=== PATIENT | male | born 1950 | race Caucasian/White ===

== ENCOUNTER 2019-10-04 11:47 | Observation (INO) ==
[2019-10-04 13:44] LABS: BASO# 0.02 X1000 (0.0-0.2); BASO% 0.3 % (0.0-0.8); EOS# 0.17 X1000 (0.0-0.7); EOS% 2.5 % (0.0-10.0); HEMATOCRIT 40.1 % (42.0-52.0); LYMPH# 1.26 X1000 (1.2-3.4); LYMPH% 18.4 % (20.5-51.1); MCH 30.7 PG (27-31); MCHC 32.4 g/dL (33-37); MCV 94.6 FL (81-99); MONO# 0.41 X1000 (0.11-0.59); MPV 9.7 FL (7.4-10.4); NEUT# 4.97 X1000 (1.4-6.5); NEUT% 72.8 % (42.2-75.2); PLT 208 X1000 (130-400); RBC 4.24 XMIL (4.7-6.1); RDW 14.7 % (11.5-14.5); WBC 6.83 X1000 (4.8-10.8)
[2019-10-04] MEDS ORDERED: NS 1,000 ML IV ONE (13:55)
[2019-10-04 14:34] LABS: ALB/GLOB RATIO 1.4; CALCIUM 9.2 mg/dL (8.8-10.2); CREATININE 1.5 mg/dL (0.7-1.2); MAGNESIUM 1.7 mg/dL (1.5-2.7); PHOSPHORUS 4.4 mg/dL (2.7-4.5); POTASSIUM 7.4 mmol/L (3.5-5.1); TOTAL BILIRUBIN 0.53 mg/dL (0.20-1.00); TOTAL PROTEIN 6.9 g/dL (6.3-8.3)
[2019-10-04] MEDS ORDERED: CALCIUM CHLORIDE SYRINGE IV ONE (14:35)
[2019-10-04] MEDS ORDERED: HUMULIN R IV ONE ×3 (14:35→20:52)
[2019-10-04] MEDS ORDERED: SODIUM BICARBONATE 8.4% IV ONE ×2 (14:35→17:02)
[2019-10-04] MEDS ORDERED: KAYEXALATE PO ONE (14:35)
[2019-10-04] MEDS ORDERED: ALBUTEROL NEB INH ONE (14:35)
[2019-10-04] MEDS ORDERED: LASIX IV ONE (14:35)
[2019-10-04] MEDS ORDERED: D50W SYRINGE IV ONE ×3 (14:35→20:52)
--- NOTE | 2019-10-04 14:44 | PROVIDER DOCUMENTATION ---
This chart was entered by Layne Farley Scribe, acting as scribe for Manuel Alexandre MD. HPI-General Adult - General Chief Complaint: Abnormal Lab[s] Stated Complaint: ABNORMAL LAB Time Seen by Provider: 10/04/19 13:31 Source: patient Allergies/Adverse Reactions: Patient Allergies Allergy/AdvReac Type Severity Reaction Status Date / Time Penicillins Allergy ITCHING Verified 02/10/19 11:42 Home Medications: Home Medication List Medication Instructions Recorded Confirmed Last Taken Type Biotin 10,000 mcg PO DAILY 08/16/15 02/04/19 02/10/19 08:00 History Carvedilol 25 mg PO BID 08/16/15 02/04/19 02/10/19 08:00 History Cyanocobalamin (Vitamin B-12) 1,000 mcg PO DAILY 08/16/15 02/04/19 02/10/19 08:00 History [Vitamin B-12] Febuxostat [Uloric] 40 mg PO DAILY 08/16/15 02/04/19 02/09/19 History Furosemide 40 mg PO DAILY PRN 08/16/15 02/04/19 02/15/18 04:30 History 1 LISINOpril [Prinivil] 20 mg PO BID 08/16/15 02/04/19 02/10/19 08:00 History Losartan Potassium 100 mg PO DAILY 08/16/15 02/04/19 02/09/19 History Spironolactone 25 mg PO DAILY 08/16/15 02/04/19 02/10/19 08:00 History Celecoxib [Celebrex] 200 mg PO BID 03/13/18 02/10/19 02/09/19 History Indomethacin, Submicronized 20 mg PO BID PRN PRN 03/13/18 02/04/19 02/10/19 08:00 History [Tivorbex] Amlodipine Besylate 5 mg PO DAILY 02/04/19 02/10/19 02/10/19 08:00 History Colchicine [Colcrys] 0.6 mg PO BID PRN PRN 02/04/19 02/04/19 Unknown History Leuprolide Acetate [Eligard] 45 mg SQ DIRECTED 02/04/19 02/10/19 10/23/18 History Oxybutynin [Ditropan] 5 mg PO BID 02/04/19 02/04/19 02/09/19 History Venlafaxine HCl [Venlafaxine HCl 37.5 mg PO DAILY 02/04/19 02/04/19 02/09/19 History ER] Hydrocodone/Acetaminophen [[place] 1 ea PO TID PRN PRN #15 tab 02/10/19 Unknown Rx 10-325 Tablet] Sulfamethoxazole/Trimethoprim 1 ea PO BID #14 tab 02/10/19 Unknown Rx [Bactrim Ds Tablet] - History of Present Illness -Gen Adult Nature of Presenting Problems: Patient is a 69 y/o male presenting to the ED today c/o abnormal labs. Patient reports he was sent by his PCP for hyperkalemia. Patient reports decreased urine output but states he does not drink water much. Patient states he has been having leg pain over the last week and has been taking Aleve for this. Patient also takes Celebrex, Lisinopril, Losartan, spinronolactone, Atorvastatin, and Plavix as prescribed. Patient reports he has a history of MN in 2009 with 3-4 stents. Patient also reports history of HTN and HLP. Patient denies cigarette use. Denies all other signs/symptoms. Location of Pain/Injury: reports: none Associated Symptoms: reports: other (leg pain) Similar Symptoms Previously?: No Recently seen or treated by another doctor?: Yes (sent by PCP after labs) Review of Systems - Adult - REVIEW OF SYSTEMS - ADULT Constitutional: denies: chills, fever Eyes: reports: no symptoms reported Ears, Nose, Mouth & Throat: reports: no symptoms reported Cardiovascular: denies: chest pain Respiratory: denies: cough, shortness of breath Gastrointestinal: denies: abdominal pain, diarrhea, nausea, vomiting Genitourinary: reports: no symptoms reported Musculoskeletal: reports: frequent leg cramps Integumentary: reports: no symptoms reported Neurological: reports: no symptoms reported Psychiatric: reports: no symptoms reported Endocrine: reports: no symptoms reported Hematologic/Lymphatic: reports: no symptoms reported Allergic/Immunologic: reports: no symptoms reported All Other Systems: Reviewed and Negative Past History - Adult - PAST MEDICAL HISTORY-ADULT Review of Records: reports: Old Records Reviewed, Nursing Assessment Review, Medications Reviewed, Social history reviewed & non-contributory. Major Childhood Illnesses: reports: denies history Cardiovascular: reports: HTN, hyperlipidemia, MN (2010) Respiratory: reports: denies history Gastrointestinal: reports: denies history Obstetrical/Gynecological: reports: denies history Genitourinary: reports: denies history Musculoskeletal: reports: denies history Neurological: reports: denies history Endocrine/Immune: reports: denies history Other Conditions: reports: denies history - FAMILY HISTORY Family History: reviewed, not pertinent - SOCIAL HISTORY Smoking: quit greater than 1 year Physical Exam-General - PHYSICAL EXAM-ADULT Initial Vital Signs Reviewed: Yes - CONSTITUTIONAL General Appearance: appears well, alert, no apparent distress - EYES Eyes: PERRL/EOMI, pink conjunctivae - HEAD, EARS, NOSE, MOUTH & THROAT HENMT: normocephalic/atraumatic, moist mucous membranes - NECK Neck: full range of motion, supple - RESPIRATORY Respiratory: lungs clear, normal breath sounds, no respiratory distress, no accessory muscle use - CARDIOVASCULAR Cardiovascular: no edema, bradycardia - GASTROINTESTINAL (ABDOMEN) Abdominal Exam: non tender, soft - LYMPHATIC Lymphatic: no adenopathy - MUSCULOSKELETAL Back Exam: other (small golf-ball sized sebaceous cyst at midthoracic back) Extremity: normal range of motion, normal gait, normal inspection - SKIN Integumentary: normal color, normal turgor, warm/dry - NEUROLOGIC Neurologic: grossly normal, no motor/sensory deficits - PSYCHIATRIC Psych/Mental Status: normal mood/affect, normal thought content, normal thought process Progress - PLAN OF CARE/RESULTS Progress/Plan/Lab Results: Vital Signs - 8 hr 10/04/19 12:17 Temperature 97.9 F Pulse Rate 60 Respiratory Rate 18 Blood Pressure 101/65 O2 Sat by Pulse Oximetry 96 Laboratory Results - last 24 hr 10/04/19 13:20 WBC 6.83 RBC 4.24 L Hgb 13.0 L Hct 40.1 L MCV 94.6 MCH 30.7 MCHC 32.4 L RDW Std Deviation 14.7 H Plt Count 208 MPV 9.7 Immature Gran % (Auto) 0.0 Neut % (Auto) 72.8 Lymph % (Auto) 18.4 L [place] % (Auto) 6.0 Eos % (Auto) 2.5 Baso % (Auto) 0.3 Immature Gran # (Auto) 0.00 Neut # (Auto) 4.97 Lymph # (Auto) 1.26 [place] # (Auto) 0.41 Eos # (Auto) 0.17 Baso # (Auto) 0.02 Orders Category Date Time Status Nursing- Obtain EKG once Care 10/04/19 12:56 Active CHEST-2 VIEWS [RAD] Stat Exams 10/04/19 13:57 Ordered CBC WITH ELECTRONIC DIFF [HEME] Stat Lab 10/04/19 13:20 Completed COMPREHENSIVE METABOLIC PANEL [CHEM] Stat Lab 10/04/19 13:20 Received MAGNESIUM [CHEM] Stat Lab 10/04/19 13:20 Received PHOSPHORUS [CHEM] Stat Lab 10/04/19 13:20 Received URINALYSIS W/POSS RFLX CULT [URINALYSIS] Stat Lab 10/04/19 12:21 Uncollected 0.9% Sodium Chloride Inj [Ns] 1,000 ml Med 10/04/19 13:55 Active IV 999 mls/hr EKG [EKG] Stat Ther 10/04/19 12:56 Ordered Result Diagrams: 10/04/19 13:20 10/04/19 13:20 - REASSESSMENT Reassessment #1 Time Reassessed: 14:41 Status: improving (Given IVF, Kayexalate, Albuterol (hyperkalemia dose), insulin/D50, lasix/NaBicarb, and Calcium Chloride. Will need admission for hydration and alteration of medication regimen.) - EKG 1 Time of EKG reading by physician:: 13:31 EKG Read and Signed by:: Manuel Alexandre EKG Interpretation (*Must complete 3 of following elements*): Normal Rate: 53 Rhythm: Atrial paced rhythm [place]: normal QRS: other (low voltage, early transition) Departure - Departure Date of Disposition Decision: 10/04/19 Time of Disposition Decision: 14:43 DIAGNOSIS: Hyperkalemia, diminished renal excretion, Adverse drug interaction with prescription medication, Myalgia Chronic renal insufficiency Qualifiers: Chronic kidney disease stage: stage 3 (moderate) Qualified Code(s): N18.3 - Chronic kidney disease, stage 3 (moderate) Disposition: ADMITTED INPATIENT 09 Certified Medical Emergency: Emergent Condition: Fair Referrals and Follow-Ups: Sirena Gallegos MD [AFFILIATE PROVIDER] - - Critical Care Note This patient required my direct & personal management of CC.: Yes Total Time (mins): 40 Critical Care Statement: This patient required my direct personal management to treat or rule out processes, the absence of which, could potentiallly result in sudden, clinically significant life or limb threatening deterioration. Attestation - Physician/ BETZAIDA Attestation Patient care was provided by Advanced Practice Provider:: No The physician spent face to face time with patient:: Yes Advanced Practice Provider documentation review:: Supervising physician onsite and consulted in the evaluation and care of this patient. The physician did have a face to face encounter with the patient. This chart was documented by the indicated scribe, (Layne Farley, Jesse) and accurately reflects the services I performed and decisions made by me, Manuel Alexandre MD, as attested by the provider's signature.
--- NOTE | 2019-10-04 15:04 | ED EKG INTERP ---
EKG Interpretation - EKG Time of EKG reading by physician:: 15:03 EKG Read and Signed by:: Manuel Alexandre EKG Interpretation (*Must complete 3 of following elements*): Abnormal Rate: 53 Rhythm: atrial paced rhythm [place]: normal QRS: normal, other (low voltage) RI Interval: normal ST Wave: non-specific ST changes (PEAK T-waves) Attestation - Physician/ BETZAIDA Attestation Patient care was provided by Advanced Practice Provider:: No The physician spent face to face time with patient:: Yes Advanced Practice Provider documentation review:: Supervising physician onsite and consulted in the evaluation and care of this patient. The physician did have a face to face encounter with the patient.
--- NOTE | 2019-10-04 15:06 | Diag Imaging Result Doc PS360 ---
EXAM: CHEST-2 VIEWS INDICATION: short of breath TECHNIQUE: 3 views COMPARISON: None. FINDINGS: The lungs are grossly clear. There is no discrete pleural fluid collection or pneumothorax. The cardiomediastinal silhouette and central vasculature are grossly unremarkable. There is a stable pacemaker/defibrillator. IMPRESSION: No evidence of acute pathology by plain radiograph. Electronically signed by Yonas Marcano 10/04/2019 3:04 PM
[2019-10-04] MEDS ORDERED: TYLENOL PO PRN (15:21)
[2019-10-04] MEDS ORDERED: ZOFRAN IV PRN (15:21)
[2019-10-04] MEDS ORDERED: NS 1,000 ML IV SCH (15:30)
[2019-10-04] MEDS ORDERED: CALCIUM CHLORIDE 1 GM in NS 100 ML IV ONE (15:30)
[2019-10-04 16:35] LABS: URINE SOURCE CLEAN CATCH
[2019-10-04 16:39] LABS: BILIRUBIN URINE NEGATIVE (NEGATIVE); BLOOD URINE NEGATIVE (NEGATIVE); COLOR YELLOW; GLUCOSE URINE NEGATIVE (NEGATIVE); KETONE URINE NEGATIVE (NEGATIVE); LEUKOCYTES URINE MODERATE (NEGATIVE); NITRITE URINE NEGATIVE (NEGATIVE); PH URINE 5.5; PROTEIN URINE TRACE mg/dL (NEGATIVE); SP GRAVITY URINE 1.022; TURBIDITY URINE CLEAR (CLEAR); UROBILINOGEN URINE 2 mg/dL (NORMAL)
[2019-10-04 16:40] LABS: UR EPITHELIAL CELLS <10 /HPF (<10); URINE BACTERIA NEGATIVE /HPF; URINE RBC <10 /HPF (<10); URINE WBC <10 /HPF (<10)
[2019-10-04 17:04] LABS: UR CREAT RANDOM 314.4 mg/dL (14-26)
[2019-10-04] MEDS ORDERED: VELTASSA PO ONE (17:22)
--- NOTE | 2019-10-04 17:48 | Diag Imaging Result Doc PS360 ---
EXAM: US RENAL 2 (RETROPER) COMPLETE INDICATION: charla; hyperkalemia TECHNIQUE: COMPARISON: None. FINDINGS: There are numerous simple appearing bilateral renal cysts. The largest on the right is at the upper pole measuring up to 8.5 cm. The largest on the left is also at the upper pole measuring up to 4.3 cm. No solid renal masses or hydronephrosis is appreciated. There are also incidental prominent hepatic cysts. The right kidney measures 13.8 cm and the left kidney measures 10.9 cm in the greatest longitudinal axes. Both renal cortices measure up to 1 cm in thickness. The urinary bladder is grossly unremarkable. IMPRESSION: 1.Multiple fairly prominent renal cysts bilaterally. 2.Incidental hepatic cysts. Electronically signed by Yonas Marcano 10/04/2019 5:46 PM
[2019-10-04] MEDS: NS 1,000 ML IV SCH (17:55)
--- NOTE | 2019-10-04 17:58 | EKG Report ---
Test Performed on : 10/04/2019 1:20:30 PM Test Reason : hyperkalemia Blood Pressure : / mmHG Vent. Rate : 053 BPM Atrial Rate : 053 BPM P-R Int : 192 ms QRS Dur : 098 ms QT Int : 394 ms P-R-T Axes : -17 010 075 degrees QTc Int : 369 ms Atrial-paced rhythm Abnormal ECG When compared with ECG of 16-AUG-2015 11:05, Electronic atrial pacemaker has replaced Sinus rhythm. Nonspecific T wave abnormality no longer evident in Inferior leads Unconfirmed Result
--- NOTE | 2019-10-04 18:51 | HISTORY AND PHYSICAL ---
ADDENDUM: HISTORY: I have seen and examined Mr. Guerra today. was at the bedside at the time of the encounter. Initially when I went to see Mr. Guerra, he was not in his ER room. He had been sent to ultrasound, so I went to see him at the ultrasound department. Mr. Guerra tells me that he came in mainly because of generalized weakness, pain and cramps in his legs, and generalized weakness. He also said he did some lab work and he was told that his numbers were abnormal, so he needed to come to the emergency room. Upon presenting to the emergency room, he was found to have a potassium level of 7.4 and a creatinine of 1.5. PHYSICAL EXAMINATION: GENERAL: Remarkable for mildly obese with a BMI of 33.8. HEENT: Mucous membrane is dry, but he is anicteric and acyanotic. NECK: Supple. CHEST: Clear. CARDIOVASCULAR: Regular rate and rhythm. ABDOMEN: Soft. EXTREMITIES: No pedal edema. CENTRAL NERVOUS SYSTEM: The patient was awake, alert, and oriented. VITAL SIGNS: Blood pressure of 101/65, pulse of 60, respirations 18, temperature 97.7 degrees. HOME MEDICATIONS: Have all been reviewed. He is supposed to be on spironolactone 25 mg daily, losartan 100 mg p.o. daily, lisinopril 20 mg b.i.d., furosemide 40 mg p.o. daily, and carvedilol 25 b.i.d. DIAGNOSTIC STUDIES: His x-ray this morning showed no acute pathology. There is a stable pacemaker/defibrillator. I saw an EKG that shows atrial paced rhythm with nonspecific peaked T-waves. ASSESSMENT: 1. Generalized weakness and deconditioning most likely due to dehydration and electrolyte abnormality in this case, severe hyperkalemia, and non gap metabolic acidosis. 2. Severe hyperkalemia with mild EKG changes, presumably medication induced. 3. Non gap metabolic acidosis. 4. Clinical volume depletion with acute kidney injury. 5. History of systolic dysfunction on multiple medications which I think is the cause of his current clinical presentation. 6. Hypertension. 7. History of prostate cancer. The patient is on leuprolide. In general, I think Mr. Guerra is clinically stable. However, he remains quite weak. His potassium continues to be remarkably elevated. We are going to treat with insulin and D50 again. I have started him on Lokelma and we will continue to monitor his potassium every 6 hourly and make changes accordingly. We will also continue with IV fluids for adequate fluid resuscitation. Please refer to the details of the history and physical by the COAL PICKER. I have reviewed it and discussed the plan with her. I have also discussed my findings and plan with both the and the patient. cc: Ranjit Yepez MD
[2019-10-04] MEDS ORDERED: HUMULIN R SUBQ ONE (18:53)
--- NOTE | 2019-10-04 19:06 | HISTORY AND PHYSICAL ---
PRIMARY CARE PROVIDER: Franco Crenshaw, Nurse Practitioner. CHIEF COMPLAINT: Abnormal electrolytes. HISTORY OF PRESENT ILLNESS: Mr. Pollo Guerra is a 69-year-old male with a medical history of hypertension, osteoarthritis, hyperlipidemia, coronary disease with FL, systolic congestive heart failure, and gout. He has got a defibrillator. He has had cardiac stents. He is currently here with reports of having a high potassium level. His had gone in for a routine checkup with his primary care provider with routine labs, was found to have an elevated potassium level over 7, and was called and told to come into the emergency department. Here his initial potassium level was 7.4. He received dextrose, bicarb, insulin, Veltassa, albuterol Lasix, and Kayexalate. Currently no electrical rhythm issues at this time, but he had a repeat on his potassium level and it just barely went down. So we will monitor him in PVC. Most likely we will need to hold several of his home medications as they can increase risk for acute kidney injury which in turn can increase the risk for retaining potassium. Mr. Guerra does admit to taking Aleve on a pretty regular basis to help with his pain. He states that helps with his pain more than anything. He also stated that he has been having dizziness upon standing for the last 2 weeks along with some chills. He feels like his lower extremities have been a little more weak. PAST MEDICAL HISTORY: 1. Hypertension. 2. Osteoarthritis. 3. Hyperlipidemia. 4. Coronary artery disease with history of FL. 5. Systolic congestive heart failure. 6. Gout. 7. Prostate cancer. SURGICAL HISTORY: 1. Cardiac stents. 2. Permanent pacemaker defibrillator. 3. Prostate resection. 4. Left knee scope. 5. Bladder sling. 6. Tonsillectomy. SOCIAL HISTORY: Retired from [employer]. He was a heavy smoker of 3 or 4 packs per day for 15 years, but stopped in 1990. Used a significant amount of alcohol, but stopped that in 1980. No illicit drug use. Lives with his . FAMILY HISTORY: Mother at 71, had Alzheimer's dementia. Father at 69 secondary to an acute myocardial infarction. ALLERGIES: Penicillin. HOME MEDICATIONS: Biotin 10,000 mcg p.o. daily, Celebrex 200 mg p.o. twice daily, colchicine 0.6 mg p.o. twice daily p.r.n., Ditropan 5 mg p.o. twice daily, Eligard 45 mg subcutaneous as directed, Lasix 40 mg p.o. daily p.r.n., Losartan potassium p.o. daily, lisinopril 20 mg p.o. twice daily, spironolactone 25 mg p.o. daily, venlafaxine 37.5 mg p.o. daily, and vitamin B12 at 1000 mcg p.o. daily. REVIEW OF SYSTEMS: Mr. Pollo Guerra's 14-point review of systems were completed and all were negative except for those mentioned above in HPI. PHYSICAL EXAMINATION: VITAL SIGNS: Temperature 97.9 degrees, heart rate 60, respiratory rate 18, blood pressure 101/65, and O2 saturation 96% on room air. GENERAL: Mr. Pollo Guerra is a 69-year-old male. He is in no acute distress. He is able to answer questions appropriately. HEENT: Atraumatic, normocephalic. Pupils equal, round, and reactive to light. Extraocular movements intact. Mucous membranes are dry. NECK: Trachea midline. CARDIOVASCULAR: S1, S2. Regular rate and rhythm. No rubs, gallops, or murmurs. No lower extremity edema. Plus 2 dorsalis and radial pulses. Negative for JVD or carotid bruits. PULMONARY: Clear to auscultation. Bilateral breath sounds. No accessory muscle use or work of breathing noted. GASTROINTESTINAL: Soft, nontender, nondistended. Positive bowel sounds x4. EXTREMITIES: Moves all extremities equally. Full range of motion. Decreased strength in the lower extremities, but just slightly. NEUROLOGIC: A and O x3. Follows commands. Sensory is intact. SKIN: Warm, dry, intact. LABORATORY DATA: White blood cells 6000, hemoglobin 13, hematocrit 40, platelet count 208,000. Sodium 140, potassium initially was 7.4 and is down to 7.3, BUN 45, creatinine is 1.5, glucose 108, calcium 9.2, phosphorus 4.4, magnesium 1.7, bilirubin 0.53, AST 29, ALT 29, CK 404, albumin 4.0. Urinalysis: Trace protein, 2 urobilinogen, and moderate leukocytes. Random urine creatinine is 314, random urine sodium is 73, and random urine urea is 816. IMAGING: Chest x-ray: No evidence of acute pathology. EKG: Atrially-paced rhythm. There are some peaked T-waves noted and the rate is 53. ASSESSMENT AND PLAN: 1. Hyperkalemia with peaked T-waves to the point it was 7.4. Several medications will be held and several medications will be given to decrease the potassium level. Veltassa, Kayexalate, and then he has gotten bicarb and calcium, albuterol, dextrose, and insulin. Also, he will get some IV fluid hydration. 2. Mild acute kidney injury. He has got saline running at 100 an hour. 3. Hypertension. He is on several medications for his blood pressure, but currently the blood pressure is stable for right now. 4. History of congestive heart failure. He has a permanent pacemaker/defibrillator. 5. Hyperlipidemia. He is not on a statin or it is not listed. 6. Gout. Regarding his colchicine, we are probably just going to hold that for now. It was p.r.n. 7. Osteoarthritis. He has been using Aleve pretty regularly for the pain. We told him to not do that anymore and we will likely have to find an alternative way to help treat his arthritic pain. 8. Deep venous thrombosis prophylaxis: SCDs. Dictated by PIPE Sullivan for Ranjit Yepez MD cc: PIPE Sullivan MD [facility]
[2019-10-04 20:21] LABS: CALCIUM 9.4 mg/dL (8.8-10.2); CREATININE 1.6 mg/dL (0.7-1.2); POTASSIUM 6.4 mmol/L (3.5-5.1)
[2019-10-04] MEDS ORDERED: CALCIUM GLUCONATE 1 GM in NS 50 ML IV ONE (20:51)
[2019-10-04] MEDS ORDERED: SODIUM BICARBONATE 8.4% IV PUSH ONE (20:51)
[2019-10-04] MEDS ORDERED: ALBUTEROL 0.5% INH CONC FOR HYPERKALEMIA INH ONE (20:52)
[2019-10-05 06:00] LABS: BASO# 0.02 X1000 (0.0-0.2); BASO% 0.2 % (0.0-0.8); EOS# 0.14 X1000 (0.0-0.7); EOS% 1.6 % (0.0-10.0); HEMATOCRIT 38.6 % (42.0-52.0); HEMOGLOBIN 12.2 g/dL (14.0-18.0); IMM GRAN# 0.02 X1000 (0.0-0.04); IMM GRAN% 0.2 % (0.0-0.5); LYMPH# 1.52 X1000 (1.2-3.4); LYMPH% 17.8 % (20.5-51.1); MCHC 31.6 g/dL (33-37); MCV 94.8 FL (81-99); MONO# 0.65 X1000 (0.11-0.59); MONO% 7.6 % (1.7-9.3); MPV 9.3 FL (7.4-10.4); NEUT# 6.17 X1000 (1.4-6.5); NEUT% 72.6 % (42.2-75.2); PLT 176 X1000 (130-400); RBC 4.07 XMIL (4.7-6.1); RDW 14.7 % (11.5-14.5); WBC 8.52 X1000 (4.8-10.8)
[2019-10-05] MEDS: NS 1,000 ML IV SCH (06:01)
[2019-10-05 06:36] LABS: ALB/GLOB RATIO 1.3; ALBUMIN 3.6 g/dL (3.5-5.0); CALCIUM 9.4 mg/dL (8.8-10.2); CREATININE 1.3 mg/dL (0.7-1.2); MAGNESIUM 1.5 mg/dL (1.5-2.7); TOTAL BILIRUBIN 0.58 mg/dL (0.20-1.00); TOTAL PROTEIN 6.3 g/dL (6.3-8.3)
[2019-10-05] MEDS ORDERED: 1/2 NS 1,000 ML IV SCH (07:45)
[2019-10-05] MEDS ORDERED: ALBUTEROL 0.5% INH CONC FOR HYPERKALEMIA INH ONE (07:53)
[2019-10-05 08:54] LABS: POTASSIUM 6.2 mmol/L (3.5-5.1)
[2019-10-05] MEDS: LOKELMA POWDER PACKET PO SCH ×3 (09:22→19:08)
--- NOTE | 2019-10-05 09:37 | EKG Report ---
Test Performed on : 10/05/2019 05:49:57 AM Test Reason : hyperkalemia Blood Pressure : / mmHG Vent. Rate : 077 BPM Atrial Rate : 077 BPM P-R Int : 152 ms QRS Dur : 086 ms QT Int : 358 ms P-R-T Axes : 029 018 059 degrees QTc Int : 405 ms Sinus rhythm. with occasional premature ventricular complexes. Otherwise normal ECG When compared with ECG of 04-OCT-2019 13:20, (Unconfirmed) Sinus rhythm. has replaced Electronic atrial pacemaker Confirmed by Isma Schneider MD ([id number]) on 10/08/2019 12:12:40 PM
[2019-10-05 09:42] LABS: CALCIUM 9.4 mg/dL (8.8-10.2); CREATININE 1.2 mg/dL (0.7-1.2); POTASSIUM 5.9 mmol/L (3.5-5.1)
[2019-10-05] MEDS ORDERED: COLCRYS PO PRN (12:03)
--- NOTE | 2019-10-05 12:46 | PROGRESS NOTE ---
DATE: 10/05/2019 SUBJECTIVE: Mr. Guerra refers to be doing well today. No new complaints. He said his cramps and pains in the lower extremities have significantly improved. OBJECTIVE: Vital Signs: Current vitals are blood pressure 123/70, pulse of 79, respiration is 18, temperature 98.6 degrees. The patient is saturating 96% on room air. General: Mr. Guerra is a 69-year-old gentleman. He is in bed, in no distress. HEENT: Mucosa is pink, still dry. Anicteric, acyanotic. Neck: Supple. Chest: Good air entry bilateral. There was no crepitations, no rhonchi. Cardiovascular: Regular rate and rhythm. There are no murmurs, no rubs, no gallops. Abdomen: Soft, nontender. Bowel sounds present. Extremities: No pedal edema. ACCOUNTS PAYABLE COORDINATOR: Patient is awake, alert, and oriented. LABORATORY DATA: WBC is 8.52, hemoglobin is 12.2, platelet count of 179,000. Chemistry is reviewed. Sodium is 145, potassium is down to 5.9, chloride is up to 117, bicarb is 17, creatinine is also normalized at 1.2. ASSESSMENT: 1. Generalized weakness, deconditioning associated with cramps in the lower extremities, all related to severe dehydration and electrolyte abnormality. The patient feels a whole lot better now. 2. Severe hyperkalemia with EKG changes, presumably medication induced. Patient was home on lisinopril, losartan, Celebrex, carvedilol and spironolactone. All of these have been discontinued. The patient has been treated multiple times. Potassium is down to 5.9 this morning. We are going to continue with the management. 3. Non-gap metabolic acidosis. The patient's bicarb has dropped. He is getting more hyperchloremic, so I have discontinue the chloride containing fluids and I will use bicarb with D5. 4. Clinical volume depletion with acute kidney injury. We will continue with the IV fluids. Kidney function has normalized. 5. History of systolic dysfunction. The patient is currently extremely volume depleted. We are going to continue with the fluid resuscitation and pay very critical attention to his cardiac status. 6. Hypertension, stable. The patient is off medication at this point. 7. History of prostate cancer. In general, I think Mr. Guerra is doing a lot better. He has does not feel any more cramps and pains in his legs. We are going to continue with the fluid resuscitation. Creatinine has improved. I have changed the fluids to non-chloride base. I think if his numbers continue to look better by tomorrow, we can potentially discharge him. cc: Ranjit Yepez MD
[2019-10-05 14:48] LABS: AGAP 11; BUN 34 mg/dL (8-22); CALCIUM 9.1 mg/dL (8.8-10.2); CHLORIDE 111 mmol/L (98-107); COSMO 291; CREATININE 1.1 mg/dL (0.7-1.2); ESTIMATED GFR > 60; GLUCOSE 137 mg/dL (70-104); SODIUM 141 mmol/L (136-145); TCO2 19 mmol/L (25-35)
[2019-10-05] MEDS: SODIUM BICARBONATE 8.4% 100 MEQ in D5W 1,000 ML IV SCH (16:35)
[2019-10-05 20:12] LABS: CALCIUM 8.7 mg/dL (8.8-10.2); CREATININE 1.2 mg/dL (0.7-1.2); POTASSIUM 5.1 mmol/L (3.5-5.1)
[2019-10-05] MEDS: DITROPAN PO SCH (20:59)
[2019-10-06] MEDS: SODIUM BICARBONATE 8.4% 100 MEQ in D5W 1,000 ML IV SCH (02:00)
[2019-10-06 02:12] LABS: AGAP 10; BUN 28 mg/dL (8-22); CALCIUM 8.6 mg/dL (8.8-10.2); CHLORIDE 108 mmol/L (98-107); COSMO 287; CREATININE 1.1 mg/dL (0.7-1.2); ESTIMATED GFR > 60; GLUCOSE 97 mg/dL (70-104); POTASSIUM 5.5 mmol/L (3.5-5.1); SODIUM 141 mmol/L (136-145); TCO2 23 mmol/L (25-35)
[2019-10-06 07:53] VITALS: BP 147/93
[2019-10-06] MEDS ORDERED: VITAMIN B-12 PO SCH (09:00)
[2019-10-06] MEDS ORDERED: PATIENT'S OWN MED PO SCH (09:00)
[2019-10-06] MEDS ORDERED: EFFEXOR XR PO SCH (09:00)
[2019-10-06] MEDS ORDERED: COREG PO SCH (09:00)
[2019-10-06] MEDS: DITROPAN PO SCH (09:11)
--- NOTE | 2019-10-07 08:58 | DISCHARGE SUMMARY ---
ADMISSION DATE: 10/04/2019 DISCHARGE DATE: 10/06/2019 DISCHARGE DIAGNOSES: 1. Generalized weakness with lower extremity cramps related to dehydration and electrolyte abnormality. 2. Severe hyperkalemia, likely medication induced. 3. Non gap metabolic acidosis, better. 4. Clinical volume depletion with acute kidney injury, resolved. 5. Hypertension, stable. 6. History of prostate cancer. PROCEDURES PERFORMED: 1. Chest x-ray dated 10/04/2019. Impression: No evidence of acute pathology by plain radiograph. 2. Renal ultrasound dated 10/04/2019. Impression: Multiple fairly prominent renal cysts bilaterally, incidental hepatic cyst. HOSPITAL COURSE: A 69-year-old male with a past medical history of hypertension, osteoarthritis, hyperlipidemia, coronary artery disease with [place], systolic CHF, and gout. He has got a defibrillator, he has had cardiac stents, and he is actually admitted due to high potassium level. He has been admitted on 10/04/2019. He had gone in for a routine checkup with his primary care provider with routine labs and he was found to have an elevated potassium level over 7. They called him and told him to come to the emergency department. His initial potassium was 7.4. He received treatment for that. We put this patient on telemetry. He has an acute on chronic kidney disease, and I checked his potassium level and his kidney function has been elevated for quite some time. I talked to the patient about it and he should be following a kidney doctor. On the other hand, he has been placed on medications that actually increase the potassium level so I will stop it for now and I want him to see his primary care doctor this week, apparently he has scheduled an appointment for next Sunday, so I am holding for now medications that he was taking before, lisinopril with losartan and spironolactone. All those medications can increase the potassium level, he is taking furosemide as needed, so I will continue with that since he is not dehydrated at this moment and as per the patient, he takes that occasionally but is not frequent. His vital signs have been stable. Blood pressure has been up and down. Yesterday the highest was 170 and the low was 99/67, so I will stop for now his medications like I said, I will continue only with carvedilol and he will follow up with his primary doctor this week or next Sunday. I offered this patient the possibility of staying one more night, but he declined that. He is feeling good, no more cramps at the level of the lower extremities. I told him to stop these medications since the medications can increase the potassium level and to be careful with his diet, especially eating some food that contain high amount of potassium, like bananas, and he seems to understand. Like I mentioned before, the patient seems to be stable and he wants to go home. Follow up with his primary care doctor this week or at the beginning of the next week, he has an appointment already set up for next Sunday. PHYSICAL EXAMINATION: Vital signs: Temperature 97.6 degrees, pulse 91, respiratory rate 16, blood pressure 147/93, oxygen saturation 91% on room air. HEENT: Head normocephalic, no trauma. PERRLA. Neck: Supple. No JVD. No masses. Central trachea. Chest: Clear to auscultation. No wheezing. No rales. Abdomen: Soft, nontender, nondistended. No hepatosplenomegaly. Extremities: No edema, no clubbing, no cyanosis. Neurological: The patient is awake, alert, he is oriented x3. No focal deficits. LABORATORY DATA: Sodium 141, potassium 5.5, chloride 108, bicarbonate 23, BUN 28, creatinine 1.1, glucose 97, calcium 8.6. DISCHARGE MEDICATIONS: Biotin 1000 mcg p.o. daily, carvedilol 25 mg p.o. b.i.d., colchicine 0.6 mg p.o. b.i.d. as needed, vitamin B12 1000 mcg p.o. daily, Lasix 40 mg p.o. daily as needed, Eligard 45 mg subcutaneous as directed, Ditropan 5 mg p.o. b.i.d., and venlafaxine 37.5 mg p.o. daily. TIME SPENT: Discharging this patient, 25 minutes. cc: Aung Campos MD
== END 2019-10-06 09:36 | disposition home or self-care (01) ==
LOC: ED 11:47 → EDIPHOLD 15:39 → INTOOBSV 15:39 → SUATTDRO 15:39 → EDIPHOLD 10-06 09:40
PROVIDERS: ATTEND Internal Medicine